=== PATIENT | male | born 1990 | race Caucasian/White ===

== ENCOUNTER 2017-12-23 11:41 | Emergency (ER) | payer MEDICAID ==
[~2017-12-23] VITALS: Ht 193 cm; Wt 106.6 kg
[2017-12-23 11:48] VITALS: BP 129/72
== END 2017-12-23 12:25 | disposition home or self-care (01) ==
LOC: ER 11:41
DX: F20.9 Schizophrenia, unspecified (principal)

== ENCOUNTER 2021-07-05 20:17 | Emergency (ER) | payer MEDICAID ==
[~2021-07-05] VITALS: Ht 193 cm; Wt 106.6 kg
[2021-07-05 20:25] VITALS: BP 138/90
== END 2021-07-05 23:55 | disposition left against medical advice (07) ==
LOC: ER 20:19
DX: R20.2 Paresthesia of skin (principal); Z53.21 Procedure and treatment not carried out due to patient leaving prior to being seen by health care provider

== ENCOUNTER 2022-01-27 00:40 | Emergency (ER) | payer MEDICAID ==
[~2022-01-27] VITALS: Ht 193 cm; Wt 104.3 kg
[2022-01-27 01:21] VITALS: BP 141/86
[2022-01-27 02:07] LABS: Basophils # (auto) 0.1 10 ^3/uL (0-0.2); Basophils % (auto) 0.7 % (0.0-2.0); Eosinophils # (auto) 0.1 10 ^3/uL (0-0.8); Eosinophils % (auto) 1.7 % (0.0-7.0); Hematocrit 50.6 % (41.0-53.0); Hemoglobin 17.5 g/dL (13.5-17.5); Lymphocytes # (auto) 1.5 10 ^3/uL (0.4-5.4); Lymphocytes % (auto) 18.8 % (10.0-50.0); Mean Corpuscular Hemoglobin 29.8 pg (28.0-32.0); Mean Corpuscular Hgb Conc. 34.5 g/dL (32.0-36.0); Mean Corpuscular Volume 86.2 fL (80.0-100.0); Monocytes # (auto) 0.7 10 ^3/uL (0-1.3); Monocytes % (auto) 8.8 % (0.0-12.0); Neutrophils # (auto) 5.6 10 ^3/uL (1.6-8.6); Nucleated Red Blood Cells % 0.3 %; Red Blood Cells 5.87 10^6/uL (4.5-5.90); Red Cell Distribution Width 13.6 % (11.8-14.3)
[2022-01-27 02:33] LABS: Albumin 3.6 g/dL (3.4-5.0); BUN/Creatinine Ratio 4.9; Calcium 8.8 mg/dL (8.5-10.1); Magnesium 2.3 mg/dL (1.6-2.6); Potassium 3.9 mmol/L (3.5-5.1)
[2022-01-27 02:36] LABS: Bilirubin, Total 0.4 mg/dL (0.2-1.0); Total Protein 8.3 g/dL (6.4-8.2)
[2022-01-27 03:32] LABS: Urine Bacteria FEW /hpf (None Seen); Urine Blood Negative /uL (Negative); Urine Mucus FEW (None Seen); Urine Specific Gravity 1.018 (1.001-1.035); Urine WBC 291 /hpf (0 - 3)
[2022-01-27] MEDS ORDERED: DOXYCYCLINE 100 MG TAB/CAP PO ONE (05:15)
[2022-01-27] MEDS ORDERED: cefTRIAXone SOD 500 MG VL IM ONE (05:15)
== END 2022-01-27 06:21 | disposition left against medical advice (07) ==
LOC: ER 00:42
DX: R10.9 Unspecified abdominal pain (principal)
CPT/HCPCS: 36415; 74176; 76870; 80053; 81001; 83690; 83735; 85025